=== PATIENT | male | born 1980 | race Asian ===

== ENCOUNTER 2016-08-12 09:29 | Emergency (ER) | payer OTHER ==
[~2016-08-12] VITALS: Ht 175.3 cm; Wt 66.4 kg
[2016-08-12 09:32] VITALS: TEMP 36.6; Ht 175.3 cm; Wt 66.4 kg
[2016-08-12] MEDS ORDERED: LORA10CA10 PO (10:36)
[2016-08-12] MEDS ORDERED: TENO300T5 PO (10:36)
[2016-08-12] MEDS ORDERED: RABIES IMMUNE GLOBULIN (HUMAN) 150 INTER.UNIT/ML 2 ML VIAL IM. ONE (10:45)
[2016-08-12] MEDS ORDERED: RABIES VACCINE (IMOVAX) HUMAN DIPL CELL 2.5 INTER.UNIT/ML SYR IM. ONE (10:45)
--- NOTE | 2016-08-12 11:24 | EMERGENCY ROOM VISIT NOTE ---
History Report prepared by Андрей: Abelardo Ambrose Under the Supervision of: Dr. Gutierrez Alvarado D.O. First contact with patient: 10:20 Chief Complaint: RABIES VACCINE Stated Complaint: FIRST RABIES VACCINE History of Present Illness The patient is a 36 year old male who presents to the Emergency Room with complaints of a persistent scratch on his right knee. He says that he was walking his dog yesterday, and another dog approached. This approaching dog scratched the patient's right knee when the patient was carrying his own dog. The patient says that the approaching dog was jumping at the patient's dog. He thinks the dog was a [place]. The patient does not think that the dog bit him and he says he does not know who the commercial loan administrator of the dog is. The patient says that his scratch bled a bit yesterday after the encounter. He was seen at [facility] prior to arrival, and was sent here for the first rabies vaccination. The patient is concerned because the scratch has been persistently red and the dog was running around for more than 30 minutes without an commercial loan administrator coming to get the dog. Source of History: patient Onset: Yesterday Position: knee (right) Quality: other (red scratch) Timing: other (persistent) Note: Associated symptoms: Patient does not think dog bit him. Review of Systems See HPI for pertinent positives & negatives. A total of 10 systems reviewed and were otherwise negative. Past Medical & Surgical Medical Problems: (1) No pertinent past medical history Family History No pertinent family history Social History Smoking Status: Never Smoker Marital Status: Housing Status: lives with significant other Occupation Status: student Current/Historical Medications Scheduled Loratadine (Loratadine), 10 MG PO DAILY Tenofovir Disoproxil Fumarate (Viread), 300 MG PO DAILY Allergies Coded Allergies: Penicillins (Unverified Allergy, Intermediate, RASH, 08/12/16) Physical Exam Vital Signs Date Time Temp Pulse Resp B/P Pulse Ox O2 Delivery O2 Flow Rate FiO2 08/12/16 09:32 36.6 65 18 111/67 96 Room Air Physical Exam CONSTITUTIONAL/VITAL SIGNS: Reviewed / noted above. GENERAL: Non-toxic in appearance. INTEGUMENTARY: Warm, dry, and [place]. HEAD: Normocephalic. EYES: without scleral icterus or trauma. ENT/OROPHARYNX: clear and moist. LYMPHADENOPATHY/NECK: Is supple without lymphadenopathy or meningismus. RESPIRATORY: Lungs clear and equal. CARDIOVASCULAR: Regular rate and rhythm. GI/ABDOMEN: Soft and nontender. No organomegaly or pulsatile mass. No rebound or guarding. Normal bowel sounds. EXTREMITIES: 1 cm abrasion to right lateral knee. BACK: No CVA tenderness. NEUROLOGICAL: Intact without focal deficits. PSYCHIATRIC: normal affect. MUSCULOSKELETAL: Normally developed with good muscle tone. Medical Decision & Procedures Medications Administered Medications (Trade) Dose Ordered Sig/Bety Route Start Time Stop Time Status Last Admin Dose Admin Rabies Immune Globulin (Imogam Rabies Inj) 1,320 interunit ONCE ONCE IM. 08/12/16 10:45 08/12/16 10:46 DC 08/12/16 11:09 1,320 INTERUNIT Rabies Vaccine Human Diploid Cell (Imovax Rabies) 2.5 interunit ONCE ONCE IM. 08/12/16 10:45 08/12/16 10:46 DC 08/12/16 11:18 2.5 INTERUNIT ED Course 1021: Previous medical records were reviewed. The patient was evaluated in room B7. A complete history and physical examination was performed. 1045: Ordered Imovax Rabies 2.5 interunit IM, Imogam Rabies Inj 1320 interunit IM. 1115: On reevaluation, the patient is resting comfortably. I discussed the results and findings with the patient. He verbalized agreement of the treatment plan. He was discharged home. Medical Decision Differential diagnosis includes but is not limited to: bite versus abrasion. This is a 36-year-old male who presents to the ED with a chief complaint of a possible bite wound to his right lateral knee. The patient has a small 1 cm abrasion to the right lateral knee. He believes it was from a urine shower terrier. He was sent here for immunizations and RIG from [facility]. 1 mL of RIG was administered in the area. The patient was treated with the IMOVAX and RIG. He was discharged. He states that [facility] has already scheduled his follow-up visits for Imovax. He will follow up there for this edition injections. Impression Primary Impression: Dog bite of right knee Scribe Attestation The scribe's documentation has been prepared under my direction and personally reviewed by me in its entirety. I confirm that the note above accurately reflects all work, treatment, procedures, and medical decision making performed by me. Departure Information Dispostion Home / Self-Care Referrals Ryder Bee D.O. (PCP) Patient Instructions My [facility] Additional Instructions Follow-up with [facility] for your additional vaccines as scheduled.
[2016-08-12 11:44] VITALS: BP 114/72; PULSE 54; O2SAT 98
== END 2016-08-12 11:45 | disposition home or self-care (01) ==
LOC: C.EDB 09:30
DX: Z23 Encounter for immunization (principal); Z20.3 Contact with and (suspected) exposure to rabies; W54.0XXA Bitten by dog, initial encounter